=== PATIENT | female | born 1970 | race Caucasian/White ===

== ENCOUNTER 2016-06-21 17:36 | Emergency (ER) | payer SELFPAY ==
[~2016-06-21] VITALS: Ht 149.9 cm; Wt 52.2 kg
[2016-06-21 18:00] VITALS: BP 116/53
[2016-06-21] MEDS ORDERED: IBUPROFEN 600 MG TAB PO ONE (19:45)
== END 2016-06-21 20:15 | disposition home or self-care (01) ==
LOC: ER 18:00
DX: S90.31XA Contusion of right foot, initial encounter (principal); Z88.0 Allergy status to penicillin; X58.XXXA Exposure to other specified factors, initial encounter; Y93.89 Activity, other specified; Y99.8 Other external cause status; Y92.89 Other specified places as the place of occurrence of the external cause
CPT/HCPCS: 73630; 99284; L3260